=== PATIENT | male | born 1985 | race Asian ===

== ENCOUNTER 2018-11-25 07:02 | Day surgery (SDC) | payer MEDICAID ==
[~2018-11-25] VITALS: Ht 170.2 cm; Wt 68.0 kg
[2018-11-25] MEDS ORDERED: fentaNYL 0.05 MG/ML VIAL ONE (09:30)
[2018-11-25] MEDS ORDERED: MIDAZOLAM 2 MG/2 ML VIAL ONE (09:30)
[2018-11-25] MEDS ORDERED: MIDAZOLAM 2 MG/2 ML VIAL IVP ONE (09:55)
== END 2018-11-25 10:35 | disposition home or self-care (01) ==
LOC: MOR 07:02 → MMU 07:03 → MOR 10:35
PROVIDERS: ATTEND Internal Medicine Gastroenterology
DX: K22.8 Other specified diseases of esophagus (principal); K29.70 Gastritis, unspecified, without bleeding; Z87.891 Personal history of nicotine dependence
CPT/HCPCS: 36415; 43239; 86677; J2250; J3010